=== PATIENT | female | born 1970 | race Caucasian/White ===

== ENCOUNTER 2021-11-02 14:34 | Outpatient (CLI) | payer BC | END 2021-11-02 14:35 | disposition home or self-care (01) | LOC: CSHULT 14:34 | PROVIDERS: ATTEND Internal Medicine Critical Care Medicine | DX: R06.09 Other forms of dyspnea (principal); I34.0 Nonrheumatic mitral (valve) insufficiency; I07.1 Rheumatic tricuspid insufficiency | CPT/HCPCS: 93306 ==

== ENCOUNTER 2021-11-06 12:06 | Outpatient (CLI) | payer BC ==
[~2021-11-06 12:06] MED LIST: Iopamidol 370 76% 100 ML VIAL ONE
== END 2021-11-06 12:07 | disposition home or self-care (01) ==
LOC: CSHCT 12:06
PROVIDERS: ATTEND Internal Medicine Critical Care Medicine
DX: R06.09 Other forms of dyspnea (principal)
CPT/HCPCS: 71275; Q9967

== ENCOUNTER 2021-11-27 08:50 | Outpatient (CLI) | payer BC | END 2021-11-27 08:51 | disposition home or self-care (01) | LOC: CSHLAB 08:50 | PROVIDERS: ATTEND Internal Medicine Critical Care Medicine | DX: Z20.822 Contact with and (suspected) exposure to COVID-19 (principal) | CPT/HCPCS: 87811 ==

== ENCOUNTER 2021-12-02 07:44 | Outpatient (CLI) | payer BC | END 2021-12-02 07:45 | disposition home or self-care (01) | LOC: CSHCP 07:44 | PROVIDERS: ATTEND Internal Medicine Critical Care Medicine | DX: R06.09 Other forms of dyspnea (principal) | CPT/HCPCS: 94060; 94760 ==